=== PATIENT | male | born 1955 | race Caucasian/White ===

== ENCOUNTER 2017-02-01 01:46 | Emergency (ER) | payer OTHER ==
[~2017-02-01] VITALS: Ht 188 cm; Wt 63.4 kg
[~2017-02-01 01:46] MED LIST: ADVAIR 100-501 EACH; ALBUTEROL17 GM; ASPIR 8181 MG PO; ATENOLOL25 MG PO; CLONAZEPAM2 MG PO; DIAZEPAM10 MG; DIAZEPAM10 MG PO; IMITREX25 MG SC; LYRICA25 MG PO; OXYCODONE10 MG PO; PERCOCET 7.5-31 EACH PO; PROPRANOLOL HCL80 MG PO; PROVENTIL17 GM IH; SPIRIVA1 INHALATI IH
[2017-02-01 06:10] VITALS: BP 117/72
== END 2017-02-01 06:11 | disposition home or self-care (01) ==
LOC: EME 01:46
DX: S70.01XA Contusion of right hip, initial encounter (principal); W18.30XA Fall on same level, unspecified, initial encounter; J44.9 Chronic obstructive pulmonary disease, unspecified; I10 Essential (primary) hypertension; M79.7 Fibromyalgia; K21.9 Gastro-esophageal reflux disease without esophagitis; F32.9 Major depressive disorder, single episode, unspecified; Z88.2 Allergy status to sulfonamides; Z87.442 Personal history of urinary calculi; Z88.0 Allergy status to penicillin; Z87.891 Personal history of nicotine dependence; Z88.8 Allergy status to other drugs, medicaments and biological substances; Z90.49 Acquired absence of other specified parts of digestive tract
CPT/HCPCS: 73502; 73552; 99281; 99283; J2270

== ENCOUNTER 2017-02-04 18:30 | Emergency (ER) | payer OTHER ==
[~2017-02-04] VITALS: Ht 188 cm; Wt 70.5 kg
[2017-02-04] MEDS ORDERED: PERCOCET 5/31 TABLET PO (22:36)
[2017-02-04 22:44] VITALS: BP 99/71
== END 2017-02-04 22:45 | disposition home or self-care (01) ==
LOC: RME 18:30 → EME 18:30 → RME 22:45
DX: S70.01XD Contusion of right hip, subsequent encounter (principal); R10.2 Pelvic and perineal pain; J44.9 Chronic obstructive pulmonary disease, unspecified; I10 Essential (primary) hypertension; Z88.0 Allergy status to penicillin; Z88.2 Allergy status to sulfonamides
CPT/HCPCS: 72192; 99281; 99283

== ENCOUNTER 2017-02-06 16:29 | Emergency (ER) | payer OTHER ==
[~2017-02-06] VITALS: Ht 188 cm; Wt 69.0 kg
[~2017-02-06 16:29] MED LIST changes: +PERCOCET 5/31 TABLET PO
[2017-02-06 18:35] VITALS: BP 108/73
== END 2017-02-06 18:44 | disposition home or self-care (01) ==
LOC: EME 16:29
DX: S70.01XA Contusion of right hip, initial encounter (principal); S60.221A Contusion of right hand, initial encounter; W18.30XA Fall on same level, unspecified, initial encounter; M79.7 Fibromyalgia; I10 Essential (primary) hypertension; J44.9 Chronic obstructive pulmonary disease, unspecified; K21.9 Gastro-esophageal reflux disease without esophagitis; F32.9 Major depressive disorder, single episode, unspecified; Z87.891 Personal history of nicotine dependence; Z90.49 Acquired absence of other specified parts of digestive tract; Z88.0 Allergy status to penicillin
CPT/HCPCS: 73130; 73502; 99281; 99284

== ENCOUNTER 2017-02-11 01:27 | Emergency (ER) | payer OTHER ==
[~2017-02-11] VITALS: Ht 188 cm; Wt 69.5 kg
[2017-02-11 02:13] VITALS: BP 119/92
[2017-02-12] MEDS ORDERED: LIDODERM 5% P1 PATCH TD (13:35)
[2017-02-12] MEDS ORDERED: ARYMO ER15 MG PO (13:35)
== END 2017-02-11 02:14 | disposition left against medical advice (07) ==
LOC: EME 01:27 → EXP 01:27
DX: M25.551 Pain in right hip (principal); G89.29 Other chronic pain; W18.30XA Fall on same level, unspecified, initial encounter
CPT/HCPCS: 99281; 99283; J2270; Q0169

== ENCOUNTER 2017-02-12 11:53 | Emergency (ER) | payer OTHER ==
[~2017-02-12] VITALS: Ht 188 cm; Wt 69.0 kg
[2017-02-12] MEDS ORDERED: ARYMO ER15 MG PO (13:35)
[2017-02-12] MEDS ORDERED: LIDODERM 5% P1 PATCH TD (13:35)
[2017-02-12 14:23] VITALS: BP 167/94
== END 2017-02-12 14:42 | disposition home or self-care (01) ==
LOC: EME 11:53
DX: M25.551 Pain in right hip (principal); Z91.81 History of falling; G89.29 Other chronic pain; Z96.641 Presence of right artificial hip joint; I10 Essential (primary) hypertension; J44.9 Chronic obstructive pulmonary disease, unspecified; F17.200 Nicotine dependence, unspecified, uncomplicated; Z99.3 Dependence on wheelchair
CPT/HCPCS: 73502; 99281; 99284; J2270

== ENCOUNTER 2017-02-20 15:29 | Emergency (ER) | payer OTHER ==
[~2017-02-20] VITALS: Ht 188 cm; Wt 70.5 kg
[~2017-02-20 15:29] MED LIST changes: +ARYMO ER15 MG PO; +LIDODERM 5% P1 PATCH TD
[2017-02-20] MEDS ORDERED: PERCOCET 5/31 TABLET PO (17:02)
[2017-02-20 17:35] VITALS: BP 124/93
== END 2017-02-20 17:37 | disposition home or self-care (01) ==
LOC: EME 15:29
DX: S70.01XA Contusion of right hip, initial encounter (principal); W01.0XXA Fall on same level from slipping, tripping and stumbling without subsequent striking against object, initial encounter; Z87.442 Personal history of urinary calculi; M79.7 Fibromyalgia; K21.9 Gastro-esophageal reflux disease without esophagitis; J44.9 Chronic obstructive pulmonary disease, unspecified; I10 Essential (primary) hypertension; Z87.891 Personal history of nicotine dependence
CPT/HCPCS: 73502; 99281; 99284

== ENCOUNTER 2017-02-25 21:04 | Emergency (ER) | payer OTHER ==
[~2017-02-25] VITALS: Ht 188 cm; Wt 60.0 kg
[2017-02-25 23:34] VITALS: BP 111/81
== END 2017-02-25 23:35 | disposition home or self-care (01) ==
LOC: EME 21:04
DX: M25.551 Pain in right hip (principal); R29.6 Repeated falls; F11.20 Opioid dependence, uncomplicated; Z76.5 Malingerer [conscious simulation]; Z89.621 Acquired absence of right hip joint; Z89.622 Acquired absence of left hip joint; I10 Essential (primary) hypertension; K21.9 Gastro-esophageal reflux disease without esophagitis; J44.9 Chronic obstructive pulmonary disease, unspecified; M79.7 Fibromyalgia; B19.20 Unspecified viral hepatitis C without hepatic coma; B19.10 Unspecified viral hepatitis B without hepatic coma; K74.60 Unspecified cirrhosis of liver; F17.200 Nicotine dependence, unspecified, uncomplicated; Z88.0 Allergy status to penicillin
CPT/HCPCS: 73502; 99281; 99283

== ENCOUNTER 2017-03-01 13:30 | Emergency (ER) | payer OTHER ==
[~2017-03-01] VITALS: Ht 188 cm; Wt 69.0 kg
[2017-03-01 16:18] VITALS: BP 142/84
== END 2017-03-01 16:19 | disposition home or self-care (01) ==
LOC: EME 13:30
DX: G89.29 Other chronic pain (principal); S70.01XA Contusion of right hip, initial encounter; M25.511 Pain in right shoulder; W01.0XXA Fall on same level from slipping, tripping and stumbling without subsequent striking against object, initial encounter; M79.7 Fibromyalgia; K21.9 Gastro-esophageal reflux disease without esophagitis; J44.9 Chronic obstructive pulmonary disease, unspecified; I10 Essential (primary) hypertension; Z87.442 Personal history of urinary calculi; Z87.891 Personal history of nicotine dependence
CPT/HCPCS: 73502; 99281; 99283

== ENCOUNTER 2017-03-04 04:34 | Emergency (ER) | payer OTHER ==
[~2017-03-04] VITALS: Ht 185.4 cm; Wt 60.0 kg
[2017-03-04 07:58] VITALS: BP 131/82
== END 2017-03-04 07:59 | disposition home or self-care (01) ==
LOC: EME 04:34
DX: M25.551 Pain in right hip (principal); G89.29 Other chronic pain; R45.1 Restlessness and agitation; R45.850 Homicidal ideations; F17.200 Nicotine dependence, unspecified, uncomplicated; Z88.0 Allergy status to penicillin
CPT/HCPCS: 99281; 99284

== ENCOUNTER 2017-03-20 11:49 | Emergency (ER) | payer OTHER ==
[~2017-03-20] VITALS: Ht 188 cm; Wt 61.3 kg
[2017-03-20 13:43] VITALS: BP 129/93
== END 2017-03-20 13:44 | disposition home or self-care (01) ==
LOC: EME 11:49
DX: S70.01XA Contusion of right hip, initial encounter (principal); G89.29 Other chronic pain; W01.0XXA Fall on same level from slipping, tripping and stumbling without subsequent striking against object, initial encounter; Y93.01 Activity, walking, marching and hiking; Y92.000 Kitchen of unspecified non-institutional (private) residence as the place of occurrence of the external cause; Z87.891 Personal history of nicotine dependence; Z88.2 Allergy status to sulfonamides; Z88.6 Allergy status to analgesic agent; Z88.0 Allergy status to penicillin
CPT/HCPCS: 73502; 99281; 99283

== ENCOUNTER 2017-04-18 00:55 | Emergency (ER) | payer OTHER ==
[~2017-04-18] VITALS: Ht 188 cm; Wt 69.9 kg
[2017-04-18 05:20] VITALS: BP 136/106
[2017-04-19] MEDS ORDERED: PERCOCET 5/31 TABLET PO (03:47)
== END 2017-04-18 05:21 | disposition home or self-care (01) ==
LOC: EME 00:55
DX: S70.01XA Contusion of right hip, initial encounter (principal); W18.30XA Fall on same level, unspecified, initial encounter; Z98.890 Other specified postprocedural states; Z96.649 Presence of unspecified artificial hip joint; J44.9 Chronic obstructive pulmonary disease, unspecified; Z87.891 Personal history of nicotine dependence
CPT/HCPCS: 73502; 99281; 99283; J2270

== ENCOUNTER 2017-04-19 01:09 | Emergency (ER) | payer OTHER ==
[~2017-04-19] VITALS: Ht 188 cm; Wt 69.5 kg
[2017-04-19] MEDS ORDERED: PERCOCET 5/31 TABLET PO (03:47)
[2017-04-19 04:38] VITALS: BP 00/00
== END 2017-04-19 04:38 | disposition home or self-care (01) ==
LOC: EME 01:09
DX: S70.01XA Contusion of right hip, initial encounter (principal); M25.551 Pain in right hip; G89.29 Other chronic pain; W18.30XA Fall on same level, unspecified, initial encounter; Z99.3 Dependence on wheelchair; M79.7 Fibromyalgia; K21.9 Gastro-esophageal reflux disease without esophagitis; J44.9 Chronic obstructive pulmonary disease, unspecified; I10 Essential (primary) hypertension; B19.20 Unspecified viral hepatitis C without hepatic coma; K74.60 Unspecified cirrhosis of liver; Z87.442 Personal history of urinary calculi; Z87.891 Personal history of nicotine dependence
CPT/HCPCS: 99281; 99283; J3010

== ENCOUNTER 2017-06-11 12:28 | Emergency (ER) | payer OTHER ==
[~2017-06-11] VITALS: Ht 188 cm; Wt 69.4 kg
[2017-06-11 14:49] VITALS: BP 125/67
== END 2017-06-11 14:50 | disposition home or self-care (01) ==
LOC: EME 12:28
DX: M25.551 Pain in right hip (principal); W19.XXXA Unspecified fall, initial encounter; Z96.649 Presence of unspecified artificial hip joint; F17.200 Nicotine dependence, unspecified, uncomplicated; Z88.0 Allergy status to penicillin; Z88.2 Allergy status to sulfonamides; Z88.8 Allergy status to other drugs, medicaments and biological substances
CPT/HCPCS: 73501; 73502; 99281; 99284; J2270

== ENCOUNTER 2017-07-14 23:27 | Emergency (ER) | payer OTHER ==
[~2017-07-14] VITALS: Ht 188 cm; Wt 63.8 kg
[2017-07-14 23:29] VITALS: BP 144/94
== END 2017-07-15 00:20 | disposition left against medical advice (07) ==
LOC: EME 23:27
DX: M79.661 Pain in right lower leg (principal); Z53.21 Procedure and treatment not carried out due to patient leaving prior to being seen by health care provider

== ENCOUNTER 2017-11-25 10:23 | Emergency (ER) | payer OTHER ==
[~2017-11-25] VITALS: Ht 188 cm; Wt 64.0 kg
[2017-11-25 11:37] LABS: HEMATOCRIT 40.8 % (38.0-50.0); HEMOGLOBIN 14.1 G/DL (12.5-16.6); MCH 32.9 PG (29.0-34.0); MCHC 34.6 G/DL (30.0-36.0); MCV 95.1 FL (86-99); PLATELET COUNT 81 K/uL (156-360); RBC DIS.WIDTH-CV 13.1 % (11.8-14.6); RBC DIS.WIDTH-SD 45.9 % (39-53); RED BLOOD COUNT 4.29 M/uL (4.00-5.50); WHITE BLOOD COUNT 9.8 K/uL (4.1-10.2)
[2017-11-25 11:55] LABS: CHLORIDE 98 mEq/L (99-109); POTASSIUM 4.7 mEq/L (3.7-5.4); SODIUM 134 mEq/L (136-147)
[2017-11-25 11:57] LABS: GLUCOSE 96 mg/dL (70-99)
[2017-11-25 12:01] LABS: CREATININE 0.8 mg/dL (0.6-1.3); GFR ESTIMATE (CALCULATED) > 59 mL/min/ (58.99-99999)
[2017-11-25 12:02] LABS: UREA NITROGEN (BUN) 13 mg/dL (9-23)
[2017-11-25 13:02] LABS: APPEARANCE CLEAR ((CLEAR)); BILIRUBIN NEGATIVE; BLOOD NEGATIVE; COLOR YELLOW ((YELLOW)); GLUCOSE (STRIP) NEGATIVE; KETONES NEGATIVE; LEUKOCYTES NEGATIVE; NITRITE NEGATIVE; PROTEIN (STRIP) NEGATIVE; SPECIFIC GRAVITY 1.008 (1.000-1.030); UROBILINOGEN 0.2 MG/DL (0.2-1.0)
[2017-11-25 13:15] LABS: AMPHETAMINE NEGATIVE (500 ng/mL); BARBITURATES NEGATIVE (200 ng/mL); BENZODIAZEPINES PRESUMPTIVE POSITIVE (150 ng/mL); BUPRENORPHINE NEGATIVE (10 ng/mL); COCAINE NEGATIVE (150 ng/mL); METHADONE NEGATIVE (200 ng/mL); METHAMPHETAMINE NEGATIVE (500 ng/mL); OPIATES (MORPHINE) NEGATIVE (100 ng/mL); OXYCODONE NEGATIVE (100 ng/mL); PHENCYCLIDINE NEGATIVE (25 ng/mL); PROPOXYPHENE NEGATIVE (300 ng/mL); THC CANNABINOIDS PRESUMPTIVE POSITIVE (50 ng/mL); TRICYCLIC ANTIDEPRESSANTS NEGATIVE (300 ng/mL)
[2017-11-25] MEDS ORDERED: PERCOCET 10/1 TABLET PO (13:19)
[2017-11-25 13:26] VITALS: BP 137/86
[2017-11-25 14:03] LABS: BENZODIAZEPINES, URINE SCREEN POSITIVE (200 ng/mL)
== END 2017-11-25 13:26 | disposition home or self-care (01) ==
LOC: EME 10:23
PROVIDERS: Emergency Medicine
DX: N43.3 Hydrocele, unspecified (principal); J44.9 Chronic obstructive pulmonary disease, unspecified; I10 Essential (primary) hypertension; G89.29 Other chronic pain; M79.7 Fibromyalgia; K74.60 Unspecified cirrhosis of liver; K21.9 Gastro-esophageal reflux disease without esophagitis; F32.9 Major depressive disorder, single episode, unspecified; F17.200 Nicotine dependence, unspecified, uncomplicated; Z79.891 Long term (current) use of opiate analgesic; Z87.442 Personal history of urinary calculi; Z90.79 Acquired absence of other genital organ(s); Z90.49 Acquired absence of other specified parts of digestive tract; Z86.19 Personal history of other infectious and parasitic diseases; Z98.890 Other specified postprocedural states; Z88.2 Allergy status to sulfonamides; Z91.041 Radiographic dye allergy status; Z88.0 Allergy status to penicillin; Z88.6 Allergy status to analgesic agent; Z88.5 Allergy status to narcotic agent; Z88.8 Allergy status to other drugs, medicaments and biological substances
CPT/HCPCS: 76870; 80048; 81003; 84999; 85027; 99281; 99284; J3010

== ENCOUNTER 2017-12-25 13:11 | Emergency (ER) | payer OTHER ==
[~2017-12-25] VITALS: Ht 188 cm; Wt 68.1 kg
[~2017-12-25 13:11] MED LIST changes: +PERCOCET 10/1 TABLET PO
[2017-12-25 15:18] VITALS: BP 144/99
== END 2017-12-25 15:19 | disposition home or self-care (01) ==
LOC: EME 13:11
DX: M25.551 Pain in right hip (principal); G89.29 Other chronic pain; Z76.0 Encounter for issue of repeat prescription; I10 Essential (primary) hypertension; J44.9 Chronic obstructive pulmonary disease, unspecified; K21.9 Gastro-esophageal reflux disease without esophagitis; M79.7 Fibromyalgia; K74.60 Unspecified cirrhosis of liver; B19.10 Unspecified viral hepatitis B without hepatic coma; B19.20 Unspecified viral hepatitis C without hepatic coma; F32.9 Major depressive disorder, single episode, unspecified; F17.200 Nicotine dependence, unspecified, uncomplicated; Z79.51 Long term (current) use of inhaled steroids; Z87.442 Personal history of urinary calculi; Z87.19 Personal history of other diseases of the digestive system; Z90.49 Acquired absence of other specified parts of digestive tract; Z88.2 Allergy status to sulfonamides; Z88.0 Allergy status to penicillin; Z88.6 Allergy status to analgesic agent; Z88.8 Allergy status to other drugs, medicaments and biological substances
CPT/HCPCS: 99281; 99284; J3010

== ENCOUNTER 2018-01-02 17:20 | Emergency (ER) | payer OTHER ==
[~2018-01-02] VITALS: Ht 188 cm; Wt 70.0 kg
[2018-01-02 19:56] VITALS: BP 134/81
== END 2018-01-02 19:56 | disposition home or self-care (01) ==
LOC: EME 17:20
DX: M25.551 Pain in right hip (principal); G89.29 Other chronic pain; M79.7 Fibromyalgia; K21.9 Gastro-esophageal reflux disease without esophagitis; I10 Essential (primary) hypertension; J44.9 Chronic obstructive pulmonary disease, unspecified; B19.20 Unspecified viral hepatitis C without hepatic coma; K74.60 Unspecified cirrhosis of liver; F32.9 Major depressive disorder, single episode, unspecified; F17.200 Nicotine dependence, unspecified, uncomplicated; Z87.442 Personal history of urinary calculi; Z90.49 Acquired absence of other specified parts of digestive tract; Z88.2 Allergy status to sulfonamides; Z88.0 Allergy status to penicillin; Z88.5 Allergy status to narcotic agent; Z88.6 Allergy status to analgesic agent; Z88.8 Allergy status to other drugs, medicaments and biological substances
CPT/HCPCS: 73502; J3010

== ENCOUNTER 2018-02-15 23:23 | Emergency (ER) | payer OTHER ==
[~2018-02-15] VITALS: Ht 177.8 cm; Wt 65.9 kg
[2018-02-16] MEDS ORDERED: PREDNISONE20 MG PO (01:23)
[2018-02-16 01:39] VITALS: BP 101/63
== END 2018-02-16 01:39 | disposition home or self-care (01) ==
LOC: EME 23:23
DX: S46.911A Strain of unspecified muscle, fascia and tendon at shoulder and upper arm level, right arm, initial encounter (principal); S79.911A Unspecified injury of right hip, initial encounter; G89.29 Other chronic pain; M25.551 Pain in right hip; M25.511 Pain in right shoulder; W01.0XXA Fall on same level from slipping, tripping and stumbling without subsequent striking against object, initial encounter; F32.9 Major depressive disorder, single episode, unspecified; I10 Essential (primary) hypertension; J43.9 Emphysema, unspecified; K21.9 Gastro-esophageal reflux disease without esophagitis; M79.7 Fibromyalgia; Z88.2 Allergy status to sulfonamides; Z88.0 Allergy status to penicillin; Z88.6 Allergy status to analgesic agent; F17.200 Nicotine dependence, unspecified, uncomplicated
CPT/HCPCS: 73030; 73502; 99281; 99283; J3010; J7512

== ENCOUNTER 2018-02-17 00:57 | Emergency (ER) | payer OTHER ==
[~2018-02-17] VITALS: Ht 188 cm; Wt 65.9 kg
[~2018-02-17 00:57] MED LIST changes: +PREDNISONE20 MG PO
[2018-02-17 03:56] VITALS: BP 185/159
== END 2018-02-17 03:57 | disposition home or self-care (01) ==
LOC: EME 00:57
DX: M25.551 Pain in right hip (principal); G89.29 Other chronic pain; Z96.641 Presence of right artificial hip joint; Z79.891 Long term (current) use of opiate analgesic; J44.9 Chronic obstructive pulmonary disease, unspecified; I10 Essential (primary) hypertension; Z86.19 Personal history of other infectious and parasitic diseases; Z87.442 Personal history of urinary calculi; Z87.891 Personal history of nicotine dependence
CPT/HCPCS: 99281; 99283; J2270

== ENCOUNTER 2018-02-18 09:18 | Emergency (ER) | payer OTHER ==
[~2018-02-18] VITALS: Ht 188 cm; Wt 70.4 kg
[2018-02-18 09:21] VITALS: BP 169/110
== END 2018-02-18 11:55 | disposition home or self-care (01) ==
LOC: EME 09:18
DX: M25.551 Pain in right hip (principal); M54.9 Dorsalgia, unspecified; R10.30 Lower abdominal pain, unspecified; Z91.81 History of falling; I10 Essential (primary) hypertension; F17.200 Nicotine dependence, unspecified, uncomplicated
CPT/HCPCS: 99281; 99284; J3010

== ENCOUNTER 2018-02-20 04:36 | Emergency (ER) | payer OTHER ==
[~2018-02-20] VITALS: Ht 188 cm; Wt 60.2 kg
[2018-02-20 05:37] VITALS: BP 00/00
== END 2018-02-20 05:38 | disposition home or self-care (01) ==
LOC: EME 04:36
DX: M25.551 Pain in right hip (principal); G89.29 Other chronic pain; Z88.2 Allergy status to sulfonamides; Z88.0 Allergy status to penicillin; Z88.6 Allergy status to analgesic agent
CPT/HCPCS: 99281; 99283; J3010

== ENCOUNTER 2018-02-27 23:48 | Emergency (ER) | payer OTHER ==
[~2018-02-27] VITALS: Ht 185.4 cm; Wt 60.8 kg
[2018-02-28 01:40] VITALS: BP 121/98
== END 2018-02-28 01:40 | disposition home or self-care (01) ==
LOC: EME 23:48
DX: G89.29 Other chronic pain (principal); M25.551 Pain in right hip; F17.200 Nicotine dependence, unspecified, uncomplicated; Z88.2 Allergy status to sulfonamides; Z88.0 Allergy status to penicillin; Z96.641 Presence of right artificial hip joint; Z88.6 Allergy status to analgesic agent; Z88.8 Allergy status to other drugs, medicaments and biological substances
CPT/HCPCS: 73502; 99281; 99284; J3010

== ENCOUNTER 2018-03-20 00:49 | Emergency (ER) | payer OTHER ==
[~2018-03-20] VITALS: Ht 182.9 cm; Wt 61.3 kg
[2018-03-20 01:41] VITALS: BP 114/81
== END 2018-03-20 01:45 | disposition home or self-care (01) ==
LOC: EME 00:49
DX: M25.551 Pain in right hip (principal); G89.29 Other chronic pain; Z96.649 Presence of unspecified artificial hip joint; Z88.2 Allergy status to sulfonamides; Z88.0 Allergy status to penicillin; Z88.6 Allergy status to analgesic agent
CPT/HCPCS: 99281; 99283; J3010